=== PATIENT | female | born 1975 | race Asian ===

== ENCOUNTER → 2023-09-15 11:25 | Outpatient (REF) | payer BC, SELFPAY | LOC: WDC 11:25 | PROVIDERS: ATTENDING PHYSICIAN Nurse Practitioner Family; FAMILY PHYSICIAN Family Medicine | DX: Z12.31 Encounter for screening mammogram for malignant neoplasm of breast (principal) | CPT/HCPCS: 77063; 77067 ==

== ENCOUNTER → 2024-07-30 12:49 | Outpatient (REF) | payer BC, SELFPAY | LOC: HWRAD 12:49 | PROVIDERS: ATTENDING PHYSICIAN Family Medicine; REFERRING PHYSICIAN Obstetrics & Gynecology | DX: D21.9 Benign neoplasm of connective and other soft tissue, unspecified (principal) | CPT/HCPCS: 76830; 76856 ==

== ENCOUNTER → 2024-09-03 11:45 | Outpatient (REF) | payer BC, SELFPAY ==
[2024-09-10 03:28] LABS: Chlamydia trachomatis,ThinPrep Negative (Negative); Neisseria gonorrhoeae,ThinPrep Negative (Negative); Specimen Source Cervical
[2024-09-10 03:37] LABS: HPV, High Risk Not Detected; HPV, High Risk Source Cervical
== END ==
LOC: CPAP 11:45
PROVIDERS: ATTENDING PHYSICIAN Nurse Practitioner Family
DX: Z01.419 Encounter for gynecological examination (general) (routine) without abnormal findings (principal)
CPT/HCPCS: 87491; 87591; 87624

== ENCOUNTER → 2024-09-15 12:02 | Outpatient (REF) | payer BC, SELFPAY | LOC: WDC 12:02 | PROVIDERS: ATTENDING PHYSICIAN Nurse Practitioner Family; FAMILY PHYSICIAN Family Medicine | DX: Z12.31 Encounter for screening mammogram for malignant neoplasm of breast (principal) | CPT/HCPCS: 77063; 77067 ==

== ENCOUNTER 2024-11-04 08:52 | Outpatient (RCR) | payer BC, SELFPAY | END 2024-11-04 23:59 | disposition home or self-care (01) | LOC: RST 08:52 | PROVIDERS: ATTENDING PHYSICIAN Internal Medicine; FAMILY PHYSICIAN Family Medicine | DX: R41.840 Attention and concentration deficit (principal); R41.844 Frontal lobe and executive function deficit; F07.81 Postconcussional syndrome | CPT/HCPCS: 96125; 97129; 97130 ==

== ENCOUNTER 2024-12-06 11:56 | Outpatient (RCR) | payer BC, SELFPAY | END 2024-12-06 23:59 | disposition home or self-care (01) | LOC: RST 11:56 | PROVIDERS: ATTENDING PHYSICIAN Internal Medicine; FAMILY PHYSICIAN Family Medicine | DX: R41.840 Attention and concentration deficit (principal); R41.844 Frontal lobe and executive function deficit; F07.81 Postconcussional syndrome | CPT/HCPCS: 97110; 97129; 97130; 97167; 97530; 97535 ==

== ENCOUNTER 2025-01-05 09:37 | Outpatient (RCR) | payer BC, SELFPAY | END 2025-01-05 23:59 | disposition home or self-care (01) | LOC: RST 09:37 | PROVIDERS: ATTENDING PHYSICIAN Internal Medicine; FAMILY PHYSICIAN Family Medicine | DX: R41.840 Attention and concentration deficit (principal); R41.844 Frontal lobe and executive function deficit; F07.81 Postconcussional syndrome; Z73.6 Limitation of activities due to disability | CPT/HCPCS: 97110; 97129; 97130; 97530; 97535 ==

== ENCOUNTER → 2025-01-12 10:25 | Outpatient (REF) | payer BC, SELFPAY ==
[2025-01-12 12:51] LABS: TSH 1.33 uIU/ml (0.47-4.68)
[2025-01-12 13:27] LABS: Folate > 20.0 ng/ml (2.76-20); Vitamin B12 938 pg/ml (239-931)
[2025-01-14 02:06] LABS: Copper, Serum 110.6 ug/dL (80.0-155.0)
== END ==
LOC: REG 10:25
PROVIDERS: ATTENDING PHYSICIAN Nurse Practitioner; FAMILY PHYSICIAN Family Medicine
DX: R25.1 Tremor, unspecified (principal)
CPT/HCPCS: 36415; 82390; 82525; 82607; 82746; 84443

== ENCOUNTER 2025-02-04 09:35 | Outpatient (RCR) | payer BC, SELFPAY | END 2025-02-04 23:59 | disposition home or self-care (01) | LOC: RST 09:35 | PROVIDERS: ATTENDING PHYSICIAN Internal Medicine; FAMILY PHYSICIAN Family Medicine | DX: R41.840 Attention and concentration deficit (principal); R41.844 Frontal lobe and executive function deficit; F07.81 Postconcussional syndrome; Z73.6 Limitation of activities due to disability | CPT/HCPCS: 97110; 97530 ==

== ENCOUNTER → 2025-03-01 09:22 | Outpatient (REF) | payer BC, SELFPAY ==
[2025-03-01 10:13] LABS: Urine Character Clear (Clear)
[2025-03-01 10:21] LABS: Urine Red Blood Cell 0-2 /HPF (0-2); Urine Squamous Cell 26-30 /LPF (Few); Urine White Cell 40-50 /HPF (0-5)
== END ==
LOC: REG 09:22
DX: N30.10 Interstitial cystitis (chronic) without hematuria (principal)
CPT/HCPCS: 81003; 81015

== ENCOUNTER 2025-03-07 07:38 | Outpatient (RCR) | payer BC, SELFPAY | END 2025-03-07 23:59 | disposition home or self-care (01) | LOC: RST 07:38 | PROVIDERS: ATTENDING PHYSICIAN Internal Medicine; FAMILY PHYSICIAN Family Medicine | DX: R41.840 Attention and concentration deficit (principal); R41.844 Frontal lobe and executive function deficit; Z73.6 Limitation of activities due to disability; F07.81 Postconcussional syndrome | CPT/HCPCS: 97110; 97537 ==

== ENCOUNTER 2025-04-06 09:34 | Outpatient (RCR) | payer BC, SELFPAY | END 2025-04-06 23:59 | disposition home or self-care (01) | LOC: RST 09:34 | PROVIDERS: ATTENDING PHYSICIAN Internal Medicine; FAMILY PHYSICIAN Family Medicine | DX: R42 Dizziness and giddiness (principal); R41.840 Attention and concentration deficit (principal); R41.844 Frontal lobe and executive function deficit; Z73.6 Limitation of activities due to disability; F07.81 Postconcussional syndrome; V49.9XXD Car occupant (driver) (passenger) injured in unspecified traffic accident, subsequent encounter | CPT/HCPCS: 97110; 97112; 97530 ==

== ENCOUNTER 2025-04-20 08:34 | Outpatient (RCR) | payer BC, SELFPAY | END 2025-04-20 23:59 | disposition home or self-care (01) | LOC: RST 08:34 | PROVIDERS: ATTENDING PHYSICIAN Internal Medicine; FAMILY PHYSICIAN Family Medicine | DX: F07.81 Postconcussional syndrome (principal); R41.840 Attention and concentration deficit; R41.844 Frontal lobe and executive function deficit; V49.9XXD Car occupant (driver) (passenger) injured in unspecified traffic accident, subsequent encounter; Z73.6 Limitation of activities due to disability | CPT/HCPCS: 97530; 97535 ==